=== PATIENT | female | born 1965 | race Caucasian/White ===

== ENCOUNTER 2016-05-27 18:13 | Emergency (ER) | payer OTHER ==
[2016-05-27 18:16] VITALS: BP 158/95; PULSE 88; TEMP 98.2; BMI 42.5
--- NOTE | 2016-05-27 18:41 | PDOC ---
History of Present Illness - General Chief Complaint: Cold Symptoms Stated Complaint: CHILLS Time Seen by Provider: 05/27/16 18:22 History Source: Patient Exam Limitations: No Limitations - History of Present Illness Initial Comments: 05/27/16 18:39 50 YR FEMALE c/o chills for one day and low back pain. Pt denies fever, no abd pain neg nvd. Pt denies urine or bowel dysfunction or complaints. Pt has dry cough. Pt has history of hypothyroid, kidney stones. 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 Pt has no chest pain or abd pain. 05/27/16 19:32 Timing/Duration: 24 hours Past History - Past Medical History Allergies/Adverse Reactions: Allergies Allergy/AdvReac Type Severity Reaction Status Date / Time No Known Drug Allergies Allergy Verified 05/27/16 18:16 Home Medications: Ambulatory Orders Cabergoline [Dostinex -] 0.5 mg PO WEEKLY 05/27/16 Cephalexin [Keflex] 500 mg PO BID #10 capsule 05/27/16 Metoprolol Tartrate 100 mg PO 05/27/16 Anemia: No Asthma: No Cancer: No Cardiac Disorders: No CVA: No COPD: No CHF: No Dementia: No Diabetes: No GI Disorders: No Disorders: No HTN: Yes Hypercholesterolemia: No Kidney Stones: Yes Liver Disease: No Suicide Attempt (Hx): No Seizures: No Thyroid Disease: No - Surgical History Abdominal Surgery: No Appendectomy: Yes Cardiac Surgery: No Cholecystectomy: No Lung Surgery: No Neurologic Surgery: No Orthopedic Surgery: No - Reproductive History (#): 0 - Immunization History Immunization Up to Date: Yes - Psycho/Social/Smoking Cessation Hx Anxiety: No Suicidal Ideation: No Smoking History: Never smoked Have you smoked in the past 12 months: No Information on smoking cessation initiated: No Hx Alcohol Use: No Drug/Substance Use Hx: No Substance Use Type: None Hx Substance Use Treatment: No Review of Systems - Review of Systems Able to Perform ROS?: Yes Is the patient limited Egyptian proficient: No Constitutional: Yes: Symptoms Reported, Chills HEENTM: No: Symptoms Reported Respiratory: Yes: Symptoms reported, See HPI, Cough Cardiac (ROS): No: Symptoms Reported ABD/GI: No: Symptoms Reported : Yes: Flank Pain Musculoskeletal: No: Symptoms Reported *Physical Exam - Vital Signs Last Vital Signs Temp Pulse Resp BP Pulse Ox 98.2 F 88 18 158/95 98 05/27/16 18:14 05/27/16 18:14 05/27/16 18:14 05/27/16 18:14 05/27/16 18:14 - Physical Exam General Appearance: Yes: Nourished, Appropriately Dressed HEENT: positive: EOMI, FOZIA, Normal ENT Inspection, TMs Normal, Pharynx Normal Neck: positive: Supple. negative: Tender Respiratory/Chest: positive: Lungs Clear, Normal Breath Sounds. negative: Chest Tender, Wheezing Cardiovascular: positive: Regular Rhythm, Regular Rate Gastrointestinal/Abdominal: positive: Normal Bowel Sounds, Soft Musculoskeletal: positive: Normal Inspection. negative: CVA Tenderness, CVA Tenderness (R) Extremity: positive: Normal Capillary Refill, Normal Inspection, Normal Range of Motion Integumentary: positive: Normal Color, Dry, Warm Neurologic: positive: Fully Oriented, Alert, Normal Mood/Affect, Normal Response , Motor Strength 5/5 Medical Decision Making - Medical Decision Making 05/27/16 18:41 cc: chills, flank pain low back will r/o UTI afebrile non toxic appearing 05/27/16 19:46 urine resulted 1+ blood (LMP one week ago) 05/27/16 19:46 pt states the pain has improved in her lower back since taking the motrin. I will dc home with po keflex to cover for possible early UTI strict follow up with the urologist , pt has her own. pt agrees with the plan. will give keflex now in ER pt understands to return if worse or any fever. temp is now 98.3 no chills. 05/27/16 19:52 *DC/Admit/Observation/Transfer Diagnosis at time of Disposition: Hematuria - Discharge Dispostion Disposition: HOME Condition at time of disposition: Good - Prescriptions Prescriptions: Cephalexin [Keflex] 500 mg PO BID #10 capsule - Referrals Referrals: Belkis Kaye [Primary Care Provider] - Adria Ray MD [Staff Physician] - - Patient Instructions Additional Instructions: drink pleanty of fluids to stay hydrated take the next dose of Keflex tomorrow morning follow with your urologist tomorrow or Tuesday return to ER for any worsening pain, fever, vomiting abd pain or other concerns
[2016-05-27 19:35] LABS: URINE APPEARANCE CLEAR; URINE BILIRUBIN NEGATIVE (NEGATIVE); URINE COLOR COLORLESS; URINE GLUCOSE (UA) NEGATIVE (NEGATIVE); URINE KETONE NEGATIVE (NEGATIVE); URINE LEUK ESTERASE NEGATIVE (NEGATIVE); URINE NITRITE NEGATIVE (NEGATIVE); URINE PROTEIN NEGATIVE (NEGATIVE); URINE UROBILINOGEN NEGATIVE E.U./dl (0.2-1.0)
[2016-05-27 19:39] LABS: URINE BLOOD 1+ (NEGATIVE)
[2016-05-27 19:40] LABS: URINE BACTERIA RARE /hpf (NONE SEEN); URINE RBC 1 /hpf (0-3); URINE WBC <1 /hpf (3-5)
[2016-05-27] MEDS ORDERED: CEPHALEXIN MONOHYDRATE 500 MG CAPSULE (UD) PO ONE (19:51)
[2016-05-27] MEDS ORDERED: CEPHALEXIN MONOHYDRATE 500 MG CAPSULE (UD) ONE (19:56)
== END 2016-05-27 20:00 | disposition home or self-care (01) ==
LOC: JERFT 18:13
DX: R31.9 Hematuria, unspecified (principal); I10 Essential (primary) hypertension; Z87.442 Personal history of urinary calculi
CPT/HCPCS: 81003; 81015; 87086; 99281-25

== ENCOUNTER 2016-06-25 19:53 | Emergency (ER) | payer OTHER ==
[2016-06-25 20:18] VITALS: BP 169/98; PULSE 79; TEMP 97.8; BMI 42.5
--- NOTE | 2016-06-25 20:43 | PDOC ---
History of Present Illness - General Chief Complaint: Vaginal Bleeding Stated Complaint: VAGINAL BLEEDING Time Seen by Provider: 06/25/16 20:10 History Source: Patient Exam Limitations: No Limitations - History of Present Illness Travel History: No Timing/Duration: reports: intermittent Past History - Past Medical History Allergies/Adverse Reactions: Allergies Allergy/AdvReac Type Severity Reaction Status Date / Time No Known Drug Allergies Allergy Verified 06/25/16 20:17 Home Medications: Ambulatory Orders Cabergoline [Dostinex -] 0.5 mg PO WEEKLY 05/27/16 Cephalexin [Keflex] 500 mg PO BID #10 capsule 05/27/16 Metoprolol Tartrate 100 mg PO 05/27/16 Anemia: No Asthma: No Cancer: No Cardiac Disorders: No CVA: No COPD: No CHF: No Dementia: No Diabetes: No GI Disorders: No Disorders: No HTN: Yes Hypercholesterolemia: No Kidney Stones: Yes Liver Disease: No Suicide Attempt (Hx): No Seizures: No Thyroid Disease: No - Surgical History Abdominal Surgery: No Appendectomy: Yes Cardiac Surgery: No Cholecystectomy: No Lung Surgery: No Neurologic Surgery: No Orthopedic Surgery: No - Reproductive History (#): 0 - Immunization History Immunization Up to Date: Yes - Psycho/Social/Smoking Cessation Hx Anxiety: No Suicidal Ideation: No Smoking History: Never smoked Have you smoked in the past 12 months: No Information on smoking cessation initiated: No Hx Alcohol Use: No Drug/Substance Use Hx: No Substance Use Type: None Hx Substance Use Treatment: No *Physical Exam - Vital Signs Last Vital Signs Temp Pulse Resp BP Pulse Ox 97.8 F 79 20 169/98 97 06/25/16 20:15 06/25/16 20:15 06/25/16 20:15 06/25/16 20:15 06/25/16 20:15 ED Treatment Course - LABORATORY CBC & Chemistry Diagram: 06/25/16 21:05 06/25/16 21:05 *DC/Admit/Observation/Transfer Diagnosis at time of Disposition: Uterine leiomyoma Qualifiers: Uterine leiomyoma location: submucous Qualified Code(s): D25.0 - Submucous leiomyoma of uterus - Discharge Dispostion Disposition: HOME Condition at time of disposition: Stable Admit: No - Referrals Referrals: Link Chung MD [Staff Physician] - - Patient Instructions Printed Discharge Instructions: Uterine Fibroids Additional Instructions: 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
--- NOTE | 2016-06-25 20:50 | PDOC ---
*Physical Exam - Vital Signs Last Vital Signs Temp Pulse Resp BP Pulse Ox 97.8 F 79 20 169/98 97 06/25/16 20:15 06/25/16 20:15 06/25/16 20:15 06/25/16 20:15 06/25/16 20:15 ED Treatment Course - LABORATORY CBC & Chemistry Diagram: 06/25/16 21:05 06/25/16 21:05 Medical Decision Making - Medical Decision Making 06/25/16 20:50 50 yo F presenting to the ER with a complaint of vaginal bleeding and lower abd cramping Awaiting UHCG Awaiting CBC 06/25/16 20:50 06/25/16 23:13 Uhcg neg Hgb appropriate U/S with fibroid will discharge to home Pt seen by Midlevel Provider under my direct supervision Ancillary studies reviewed I agree with plan as outlined by Midlevel Provider *DC/Admit/Observation/Transfer Diagnosis at time of Disposition: Fibroids - Discharge Dispostion Disposition: HOME Condition at time of disposition: Stable - Referrals Referrals: Link Chung MD [Staff Physician] - - Patient Instructions Printed Discharge Instructions: Uterine Fibroids Additional Instructions: 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
[2016-06-25 21:50] LABS: BASOPHIL 0.5 % (0-2.0); EOSINOPHIL 2.8 % (0-4.5); MCH 27.1 pg (25.7-33.7); MCHC 32.6 g/dl (32.0-36.0); MEAN CELL VOLUME 83.1 fl (80-96); MEAN PLT VOLUME 8.4 fl (7.5-11.1); NEUTROPHILS 63.8 % (42.8-82.8); PLATELET COUNT 311 K/MM3 (134-434); RDW 13.8 % (11.6-15.6); WHITE BLOOD COUNT 8.8 K/mm3 (4.0-10.0)
[2016-06-25 21:51] LABS: URINE APPEARANCE CLEAR; URINE BILIRUBIN NEGATIVE (NEGATIVE); URINE COLOR COLORLESS; URINE GLUCOSE (UA) NEGATIVE (NEGATIVE); URINE KETONE NEGATIVE (NEGATIVE); URINE LEUK ESTERASE NEGATIVE (NEGATIVE); URINE NITRITE NEGATIVE (NEGATIVE); URINE PROTEIN NEGATIVE (NEGATIVE); URINE UROBILINOGEN NEGATIVE E.U./dl (0.2-1.0)
[2016-06-25 22:00] LABS: URINE BLOOD 3+ (NEGATIVE)
[2016-06-25 22:02] LABS: URINE MUCUS RARE; URINE RBC 18 /hpf (0-3); URINE WBC <1 /hpf (3-5)
[2016-06-25 22:32] LABS: ALBUMIN 3.9 g/dl (3.4-5.0); ALK PHOS 77 U/L (45-117); ANION GAP 11 (8-16); BILIRUBIN,TOTAL 0.5 mg/dL (0.2-1.0); CALCIUM 8.7 mg/dL (8.5-10.1); CO2 26 mmol/L (21-32); CREATININE 0.7 mg/dL (0.55-1.02); GLUCOSE,RANDOM 86 mg/dL (74-106); SGOT/AST 16 U/L (15-37); SGPT/ALT 27 U/L (12-78); TOT PROT 7.6 g/dl (6.4-8.2)
== END 2016-06-25 23:50 | disposition home or self-care (01) ==
LOC: JER 19:53
DX: D25.0 Submucous leiomyoma of uterus (principal); I10 Essential (primary) hypertension; Z87.442 Personal history of urinary calculi
CPT/HCPCS: 36415; 76830-TC; 80053; 81003; 81015; 84703; 85025; 87086; 99283-25

== ENCOUNTER 2017-07-08 15:17 | Emergency (ER) | payer OTHER ==
--- NOTE | 2017-07-08 15:22 | PDOC ---
Rapid Medical Evaluation Time Seen by Provider: 07/08/17 15:20 Medical Evaluation: Allergies Allergy/AdvReac Type Severity Reaction Status Date / Time No Known Drug Allergies Allergy Verified 07/08/17 15:20 I have performed a brief in-person evaluation of this patient. The patient presents with a chief complaint of: pain to of left buttock into left thigh Pertinent physical exam findings: pain with palpation of left buttock I have ordered the following: urinalysis, hcg The patient will proceed to the ED for further evaluation. Discharge Disposition - Diagnosis Sciatic leg pain - Referrals - Patient Instructions - Post Discharge Activity
[2017-07-08 15:25] VITALS: BP 152/91; PULSE 74; TEMP 98.1; BMI 40.1
[2017-07-08 15:57] LABS: URINE APPEARANCE CLEAR; URINE BILIRUBIN NEGATIVE (<2.0 mg/dL); URINE COLOR STRAW; URINE GLUCOSE (UA) NEGATIVE (NEGATIVE); URINE KETONE NEGATIVE (NEGATIVE); URINE LEUK ESTERASE NEGATIVE (NEGATIVE); URINE NITRITE NEGATIVE (NEGATIVE); URINE PROTEIN NEGATIVE (NEGATIVE); URINE UROBILINOGEN NEGATIVE mg/dL (0.2-1.0)
[2017-07-08 15:59] LABS: HCG,QUALITATIVE URINE NEGATIVE
[2017-07-08 16:03] LABS: EPI CELLS RARE /HPF (FEW)
[2017-07-08] MEDS ORDERED: KETOROLAC TROMETHAMINE 60 MG/2 ML VIAL ONE (16:27)
[2017-07-08] MEDS ORDERED: KETOROLAC TROMETHAMINE 60 MG/2 ML VIAL IM ONE (16:29)
--- NOTE | 2017-07-08 16:29 | PDOC ---
History of Present Illness - General Chief Complaint: Back Pain Stated Complaint: BACK PAIN Time Seen by Provider: 07/08/17 15:20 History Source: Patient - History of Present Illness Occurred: reports: yesterday Severity: reports: moderate Pain Location: reports: back Past History - Past Medical History Allergies/Adverse Reactions: Allergies Allergy/AdvReac Type Severity Reaction Status Date / Time No Known Drug Allergies Allergy Verified 07/08/17 15:21 Home Medications: Ambulatory Orders Metoprolol Tartrate 100 mg PO DAILY 05/27/16 Hydrochlorothiazide 25 mg PO ASDIR 07/08/17 Levothyroxine [Synthroid -] 25 mcg PO DAILY 07/08/17 Lidocaine 5% Patch [Lidoderm Patch -] 1 patch TP DAILY #7 patch 07/08/17 Tramadol HCl 50 mg PO Q6H #15 tablet MDD 200mg 07/08/17 Anemia: No Asthma: No Cancer: No Cardiac Disorders: No CVA: No COPD: No CHF: No Dementia: No Diabetes: No GI Disorders: No Disorders: No HTN: Yes Hypercholesterolemia: No Kidney Stones: Yes Liver Disease: No Seizures: No Thyroid Disease: Yes (Hypo) - Surgical History Abdominal Surgery: No Appendectomy: Yes Cardiac Surgery: No Cholecystectomy: No Lung Surgery: No Neurologic Surgery: No Orthopedic Surgery: No - Reproductive History (#): 0 - Immunization History Immunization Up to Date: Yes - Suicide/Smoking/Psychosocial Hx Smoking History: Never smoked Have you smoked in the past 12 months: No Information on smoking cessation initiated: No Hx Alcohol Use: No Drug/Substance Use Hx: No Substance Use Type: None Hx Substance Use Treatment: No Review of Systems - Review of Systems Constitutional: No: Chills, Fever Respiratory: No: Shortness of Breath Cardiac (ROS): No: Chest Pain ABD/GI: No: Nausea, Vomiting, Abdominal cramping : No: Burning, Dysuria, Flank Pain, Hematuria Musculoskeletal: Yes: Back Pain. No: Muscle Weakness Neurological: Yes: Numbness. No: Tingling *Physical Exam - Vital Signs Last Vital Signs Temp Pulse Resp BP Pulse Ox 98.1 F 74 15 152/91 96 07/08/17 15:21 07/08/17 15:21 07/08/17 15:21 07/08/17 15:21 07/08/17 15:21 - Physical Exam General Appearance: Yes: Appropriately Dressed. No: Apparent Distress HEENT: positive: Normal Voice Neck: positive: Supple Respiratory/Chest: negative: Respiratory Distress Gastrointestinal/Abdominal: positive: Soft. negative: Tender, Pulsatile Mass Musculoskeletal: negative: CVA Tenderness, Vertebral Tenderness Extremity: positive: Normal Inspection Integumentary: positive: Dry, Warm Neurologic: positive: Fully Oriented, Alert, Normal Mood/Affect, Motor Strength 5/5, Sensory Deficit, Other (no SLR, able to bear weight) ED Treatment Course - ADDITIONAL ORDERS Additional order review: Laboratory Results 07/08/17 15:35 Urine Color Straw Urine Appearance Clear Urine pH 6.0 Ur Specific [place] 1.008 Urine Protein Negative Urine Glucose (UA) Negative Urine Ketones Negative Urine Blood 2+ H Urine Nitrite Negative Urine Bilirubin Negative Urine Urobilinogen Negative Ur Leukocyte Esterase Negative Urine WBC (Auto) 1 Urine RBC (Auto) 1 Ur Epithelial Cells Rare Urine HCG, Qual Negative Medical Decision Making - Medical Decision Making 07/08/17 16:30 51-year-old female, history of fibroids, renal stones, here with back pain. Patient states since yesterday, she's had left lower back pain that radiates to posterior aspect of left thigh with some numbness. Unable to describe pain, but states it is 8 out of 10 and worse with sitting and certain movements. No lower extremity weakness. No bowel or bladder incontinence or saddle anesthesia. No abd pain, CP or SOB. Denies any trauma. No history of similar pain. Taking Tylenol and Advil with no relief. Denies any dysuria, hematuria, nausea, vomiting, fever or chills. Patient adamant that this does not feel like her renal stones. See exam L lower back pain Possibly MSK Does not feel like prior renal colic and no sxs, n/v/f/c No suspicion for aortic pathology at this time Stable and in NAD w/ unremarkable exam UA w/ 2+ bld (of note menses finished yesterday per pt) -pain control and reassess in ED 07/08/17 17:03 Patient reports feeling better at this time and feels well enough to go home with pain meds. Patient to follow-up with her PMD *DC/Admit/Observation/Transfer Diagnosis at time of Disposition: Low back pain Qualifiers: Chronicity: acute Back pain laterality: left Sciatica presence: without sciatica Qualified Code(s): M54.5 - Low back pain - Discharge Dispostion Disposition: HOME Condition at time of disposition: Stable - Prescriptions Prescriptions: Lidocaine 5% Patch [Lidoderm Patch -] 1 patch TP DAILY #7 patch Tramadol HCl 50 mg PO Q6H #15 tablet MDD 200mg - Referrals Referrals: Belkis Kaye [Primary Care Provider] - - Patient Instructions Printed Discharge Instructions: Low Back Pain Additional Instructions: Take edications as prescribed and follow-up with your doctor in 1-2 weeks for further evaluation - Post Discharge Activity Forms/Work/School Notes: Back to Work
== END 2017-07-08 17:09 | disposition home or self-care (01) ==
LOC: JERFT 15:17
PROC: 3E0233Z Introduction of Anti-inflammatory into Muscle, Percutaneous Approach (ICD-10-PCS; principal; 2017-07-08)
DX: M54.42 Lumbago with sciatica, left side (principal)
CPT/HCPCS: 81003; 81015; 84703; 96372; 99281-25

== ENCOUNTER 2017-07-11 15:13 | Emergency (ER) | payer OTHER ==
--- NOTE | 2017-07-11 15:24 | PDOC ---
Rapid Medical Evaluation Time Seen by Provider: 07/11/17 15:24 Medical Evaluation: Allergies Allergy/AdvReac Type Severity Reaction Status Date / Time No Known Drug Allergies Allergy Verified 07/08/17 15:21 07/11/17 15:24 I have performed a brief in-person evaluation of this patient. The patient presents with a chief complaint of: left lower back pain with sciatica x4 days Pertinent physical exam findings: No muscle spams. No CVAT. I have ordered the following: xray The patient will proceed to the ED for further evaluation. Discharge Disposition - Diagnosis Low back pain - Referrals - Patient Instructions - Post Discharge Activity
[2017-07-11 15:36] VITALS: BP 143/64; PULSE 70; TEMP 98.4; BMI 43.6
--- NOTE | 2017-07-11 16:29 | PDOC ---
History of Present Illness - General Chief Complaint: Back Pain Stated Complaint: REVISIT, BACK PAIN Time Seen by Provider: 07/11/17 15:24 - History of Present Illness Initial Comments: 51-year-old female presents for reevaluation of lower back pain. She describes her pain as achy exacerbated with prolonged sitting relieved with rest with radiation down her lateral aspect of the left leg to the level of the thigh. She has no loss of bowel bladder function. Other associated symptoms 07/11/17 16:27 Past History - Past Medical History Allergies/Adverse Reactions: Allergies Allergy/AdvReac Type Severity Reaction Status Date / Time No Known Drug Allergies Allergy Verified 07/11/17 15:29 Home Medications: Ambulatory Orders Metoprolol Tartrate 100 mg PO DAILY 05/27/16 Hydrochlorothiazide 25 mg PO ASDIR 07/08/17 Levothyroxine [Synthroid -] 25 mcg PO DAILY 07/08/17 Lidocaine 5% Patch [Lidoderm Patch -] 1 patch TP DAILY #7 patch 07/08/17 Tramadol HCl 50 mg PO Q6H #15 tablet MDD 200mg 07/08/17 Cyclobenzaprine HCl [Flexeril 10 mg] 10 mg PO HS PRN #10 tablet 07/11/17 Methylprednisolone [Medrol Dose Harish] 4 mg PO ASDIR #21 tablet 07/11/17 Anemia: No Asthma: No Cancer: No Cardiac Disorders: No CVA: No COPD: No CHF: No Dementia: No Diabetes: No GI Disorders: No Disorders: No HTN: Yes Hypercholesterolemia: No Kidney Stones: Yes Liver Disease: No Seizures: No Thyroid Disease: Yes (Hypo) - Surgical History Abdominal Surgery: No Appendectomy: Yes Cardiac Surgery: No Cholecystectomy: No Lung Surgery: No Neurologic Surgery: No Orthopedic Surgery: No - Reproductive History (#): 0 - Immunization History Immunization Up to Date: Yes - Suicide/Smoking/Psychosocial Hx Smoking History: Never smoked Have you smoked in the past 12 months: No Information on smoking cessation initiated: No Hx Alcohol Use: No Drug/Substance Use Hx: No Substance Use Type: None Hx Substance Use Treatment: No Review of Systems - Review of Systems Musculoskeletal: Yes: Back Pain All Other Systems: Reviewed and Negative *Physical Exam - Vital Signs Last Vital Signs Temp Pulse Resp BP Pulse Ox 98.4 F 70 16 143/64 100 07/11/17 15:32 07/11/17 15:32 05/14/18 15:32 07/11/17 15:32 07/11/17 15:32 - Physical Exam Comments: GENERAL: [The patient is awake, alert, and fully oriented, in no acute distress. ] HEAD: [Normal with no signs of trauma.] EYES: [Pupils equal, round and reactive to light, extraocular movements intact, sclera anicteric, conjunctiva clear.] ENT: [Ears normal, nares patent, oropharynx clear without exudates. Moist mucous membranes.] NECK: [Normal range of motion, supple without lymphadenopathy, JVD, or masses.] LUNGS: [Breath sounds equal, clear to auscultation bilaterally. No wheezes, and no crackles.] HEART: [Regular rate and rhythm, normal S1 and S2 without murmur, rub or gallop. ] ABDOMEN: [Soft, nontender, normoactive bowel sounds. No guarding, no rebound. No masses.] EXTREMITIES: [Normal range of motion, no edema. No clubbing or cyanosis. No cords, erythema, or tenderness.] NEUROLOGICAL: [Cranial nerves II through XII grossly intact. Normal speech, normal gait.] PSYCH: [Normal mood, normal affect.] SKIN: [Warm, Dry, normal turgor, no rashes or lesions noted.] Lumbar spine skin color and temperature are normal. There is full nonpainful range of motion. 5 out of 5 strength in bilateral lower extremities. Patella and Achilles reflexes are 2+ and symmetric bilaterally. There is no clonus. Straight leg raise test is negative bilaterally. Thighs and calves are soft and nontender. There are no gross sensory motor deficits. Neurovascularly intact. 07/11/17 16:28 Medical Decision Making - Medical Decision Making Surgeries of the lumbar spine show straightening the lordosis. Mild to moderate degenerative changes. Severe decreased disc space at L5 and S1. No acute fracture 07/11/17 16:59 *DC/Admit/Observation/Transfer Diagnosis at time of Disposition: Low back pain, Lumbar back pain, Lumbar radicular pain - Discharge Dispostion Disposition: HOME Condition at time of disposition: Stable Decision to Admit order: No - Referrals Referrals: Belkis Kaye [Primary Care Provider] - Anuj Lipscomb MD [Staff Physician] - - Patient Instructions Printed Discharge Instructions: Lumbar Radiculopathy Additional Instructions: You have lumbar radiculopathy which is basically nerve root impingement coming from your lower back cannulate. I prescribed a steroid pack its best to start pack in the morning. The directions on the pack its a tapering dose. As well as a muscle relaxer. 1 pill right before bedtime. Follow-up with orthopedic surgery for further evaluation and treatment options. Return to the emergency room if symptoms increase or go unresolved prior to follow-up with orthopedic surgery. Any anti-inflammatories while on the Medrol Dosepak. No abnormal Trinalin Aleve or ibuprofen. - Post Discharge Activity
[2017-07-11 16:34] LABS: URINE APPEARANCE CLEAR; URINE BILIRUBIN NEGATIVE (<2.0 mg/dL); URINE COLOR STRAW; URINE GLUCOSE (UA) NEGATIVE (NEGATIVE); URINE KETONE NEGATIVE (NEGATIVE); URINE LEUK ESTERASE NEGATIVE (NEGATIVE); URINE NITRITE NEGATIVE (NEGATIVE); URINE PROTEIN NEGATIVE (NEGATIVE); URINE UROBILINOGEN NEGATIVE mg/dL (0.2-1.0)
== END 2017-07-11 17:17 | disposition home or self-care (01) ==
LOC: JERFT 15:13
DX: M54.16 Radiculopathy, lumbar region (principal); I10 Essential (primary) hypertension; E03.9 Hypothyroidism, unspecified; Z87.442 Personal history of urinary calculi
CPT/HCPCS: 72100-TC-FY; 81003; 84703; 99281-25

== ENCOUNTER 2018-03-25 10:01 | Emergency (ER) | payer OTHER ==
[2018-03-25 10:10] VITALS: BP 156/74; PULSE 83; TEMP 98.6; BMI 40.3
--- NOTE | 2018-03-25 11:13 | PDOC ---
History of Present Illness - General Chief Complaint: Cold Symptoms Stated Complaint: COLD SYMPTOMS Time Seen by Provider: 03/25/18 10:54 History Source: Patient Exam Limitations: No Limitations - History of Present Illness Initial Comments: 03/25/18 11:08 52 year old female with a history of htn and surgical history of appendectomy and kidney stone removal presents with chest congestion x 1 week. Patient states runny nose, chest congestion and productive coughing x 1 week. Producing clear mucus, took otc medication feeling better but feels as if she still has "chest congestion" . Denies shortness of breath, fever or chills. 03/25/18 11:11 Severity: reports: mild Possible Cause: Yes: no prior episodes Modifying Factors: improves with: coughing Associated Symptoms: reports: denies symptoms Aspirin Received prior to arrival: Yes: no aspirin today ASA Contraindications(Core Measure): No: Allergy Beta Brenda Contraindications(Core Measure): Yes: Not Prescribed Past History - Past Medical History Allergies/Adverse Reactions: Allergies Allergy/AdvReac Type Severity Reaction Status Date / Time No Known Drug Allergies Allergy Verified 03/25/18 10:10 Home Medications: Ambulatory Orders Hydrochlorothiazide 25 mg PO ASDIR 07/08/17 Levothyroxine [Synthroid -] 25 mcg PO DAILY 07/08/17 Methylprednisolone [Medrol Dose Harish] 4 mg PO ASDIR #21 tablet 07/11/17 Guaifenesin [Mucinex] 1,200 mg PO BID #10 tab.er.12h 03/25/18 Anemia: No Asthma: No Cancer: No Cardiac Disorders: No CVA: No COPD: No CHF: No Dementia: No Diabetes: No GI Disorders: No Disorders: No HTN: Yes Hypercholesterolemia: No Kidney Stones: Yes Liver Disease: No Seizures: No Thyroid Disease: Yes (Hypo) - Surgical History Abdominal Surgery: No Appendectomy: Yes Cardiac Surgery: No Cholecystectomy: No Lung Surgery: No Neurologic Surgery: No Orthopedic Surgery: No - Reproductive History (#): 0 - Immunization History Immunization Up to Date: Yes - Suicide/Smoking/Psychosocial Hx Smoking History: Never smoked Have you smoked in the past 12 months: No Hx Alcohol Use: No Drug/Substance Use Hx: No Substance Use Type: None Hx Substance Use Treatment: No Respiratory Specific PMHX - Complaint Specific PMHX Angina: No Bronchitis: No Pneumonia: No Pulmonary Embolus: No TB (Tuberculosis): No Review of Systems - Review of Systems Able to Perform ROS?: Yes Is the patient limited Czech proficient: No Constitutional: No: Chills, Fever HEENTM: No: Nose Pain, Nose Congestion, Throat Swelling, Mouth Pain Respiratory: Yes: Productive cough. No: Orthopnea, Shortness of Breath Cardiac (ROS): No: Lightheadedness, Palpitations ABD/GI: No: Nausea, Poor Appetite, Indigestion : No: Incontinence, Urgency Musculoskeletal: No: Muscle Weakness Integumentary: No: Bruising, Erythema, Flushing Psychiatric: No: Stressors *Physical Exam - Vital Signs Last Vital Signs Temp Pulse Resp BP Pulse Ox 98.6 F 83 16 156/74 97 03/25/18 10:07 03/25/18 10:07 03/25/18 10:07 03/25/18 10:07 03/25/18 10:07 - Physical Exam General Appearance: Yes: Nourished, Appropriately Dressed HEENT: positive: TMs Normal, Pharynx Normal Respiratory/Chest: positive: Lungs Clear, Normal Breath Sounds Cardiovascular: positive: Regular Rhythm, Regular Rate, S1, S2 Neurologic: 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: machine sprayer II-XII NML intact, Fully Oriented Moderate Sedation - Procedure Monitoring Vital Signs: Procedure Monitoring Vital Signs Temperature 98.6 F 03/25/18 10:07 Pulse Rate 83 03/25/18 10:07 Respiratory Rate 16 03/25/18 10:07 Blood Pressure 156/74 03/25/18 10:07 O2 Sat by Pulse Oximetry (%) 97 03/25/18 10:07 Medical Decision Making - Medical Decision Making 03/25/18 11:13 52 year old female with a history of htn and surgical history of appendectomy and kidney stone removal presents with chest congestion x 1 week Plan d/c with mucinex DM f/u with pmd *DC/Admit/Observation/Transfer Diagnosis at time of Disposition: URI (upper respiratory infection) Qualifiers: URI type: unspecified viral URI Qualified Code(s): J06.9 - Acute upper respiratory infection, unspecified - Discharge Dispostion Disposition: HOME Condition at time of disposition: Good Decision to Admit order: No - Prescriptions Prescriptions: Guaifenesin [Mucinex] 1,200 mg PO BID #10 tab.er.12h - Referrals Referrals: Belkis Kaye [Primary Care Provider] - - Patient Instructions Printed Discharge Instructions: How to Avoid a Cold or Flu Additional Instructions: Take medication as prescribed Drink plenty of fluids Follow up with primary physician as previously scheduled 04/10/2018 - Post Discharge Activity Forms/Work/School Notes: Back to Work
== END 2018-03-25 11:14 | disposition home or self-care (01) ==
LOC: JERFT 10:01
DX: J06.9 Acute upper respiratory infection, unspecified (principal); I10 Essential (primary) hypertension; E03.9 Hypothyroidism, unspecified
CPT/HCPCS: 99281-25

== ENCOUNTER 2018-09-11 01:00 | Emergency (ER) | payer OTHER ==
[2018-09-11 01:36] VITALS: BP 158/86; PULSE 74; TEMP 98.1; BMI 41.1
--- NOTE | 2018-09-11 02:01 | PDOC ---
History of Present Illness - General Chief Complaint: Pain, Acute Stated Complaint: LEFT SIDE PAIN Time Seen by Provider: 09/11/18 02:01 History Source: Patient Exam Limitations: No Limitations - History of Present Illness Initial Comments: Caden Carballo is a 53 yo obese F w a sig pmh of HTN, hypothyroidism and kidney stones who presents to the ER with left sided chest discomfort after she worked out at the gym and lifted weights in an unusual fashion. The patient states the left side of her ribs hurt whenever she takes a deep breath or whenever she turns her torso. She states the pain is also worse upon lying down. The patient believes her chest discomfort is entirely musculoskeletal in nature but came to the ER because she wanted to make sure there is nothing wrong with her heart. She states she knows her body and doesn't think this is anything more than a muscle strain. She denies any worsening with physical exertion, denies nausea or vomiting, denies radiation, and denies any diaphoresis. Patient also denies taking exogenous hormones, denies recent travel , denies personal or family history of thrombosis, and denies claf pain or leg swelling. PCP: Dr. Belkis Kaye PSH: appendectomy Allergies: NKA, NKDA Social Hx: Denies smoking, drinking, or other substance usage. Past History - Past Medical History Allergies/Adverse Reactions: Allergies Allergy/AdvReac Type Severity Reaction Status Date / Time No Known Drug Allergies Allergy Verified 09/11/18 01:36 Home Medications: Ambulatory Orders Hydrochlorothiazide 50 mg PO ASDIR 07/08/17 Levothyroxine [Synthroid -] 25 mcg PO DAILY 07/08/17 Ibuprofen [Motrin -] 400 mg PO PRN 09/11/18 Metoprolol Succinate 100 mg PO DAILY 09/11/18 Anemia: No Asthma: No Cancer: No Cardiac Disorders: No CVA: No COPD: No CHF: No Dementia: No Diabetes: No GI Disorders: No Disorders: No HTN: Yes Hypercholesterolemia: No Kidney Stones: Yes Liver Disease: No Seizures: No Thyroid Disease: Yes (Hypo) - Surgical History Abdominal Surgery: No Appendectomy: Yes Cardiac Surgery: No Cholecystectomy: No Lung Surgery: No Neurologic Surgery: No Orthopedic Surgery: No - Reproductive History (#): 0 - Immunization History Immunization Up to Date: Yes - Suicide/Smoking/Psychosocial Hx Smoking History: Unknown if ever smoked Have you smoked in the past 12 months: No Hx Alcohol Use: No Drug/Substance Use Hx: No Substance Use Type: None Hx Substance Use Treatment: No Review of Systems - Review of Systems Able to Perform ROS?: Yes Comments:: CONSTITUTIONAL: Absent: fever, no chills, no fatigue EYES: Absent: visual changes ENT: Absent: ear pain, no sore throat CARDIOVASCULAR: Present: Chest pain Absent: no palpitations RESPIRATORY: Absent: cough, no SOB GI: Absent: abdominal pain, no nausea, no vomiting, no constipation, no diarrhea GENITOURINARY: Absent: dysuria, no frequency, no hematuria MUSKULOSKELETAL: Present: Arthralgia Absent: back pain, no myalgia SKIN: Absent: rash NEURO: Absent: headache *Physical Exam - Vital Signs Last Vital Signs Temp Pulse Resp BP Pulse Ox 98.1 F 74 18 158/86 96 09/11/18 01:33 09/11/18 01:33 09/11/18 01:33 09/11/18 01:09/11/18 01:33 - Physical Exam Comments: GENERAL: Well developed, well nourished. Awake and alert. No acute distress. HEENT: Normocephalic, atraumatic. PERRLA, EOMI. No conjunctival pallor. Sclera are non- icteric. Moist mucous membranes. Oropharynx is clear. NECK: Supple. Full ROM. No JVD. No lymphadenopathy. CARDIOVASCULAR: Regular rate and rhythm. No murmurs, rubs, or gallops. Distal pulses are 2+ and symmetric. PULMONARY: No evidence of respiratory distress. Lungs clear to auscultation bilaterally. No wheezing, rales or rhonchi. ABDOMINAL: Soft. Non-tender. Non-distended. No rebound or guarding. No organomegaly. Normoactive bowel sounds. MUSCULOSKELETAL Normal range of motion at all joints. No bony deformities or tenderness. No CVA tenderness. EXTREMITIES: No cyanosis. No clubbing. No edema. No calf tenderness. SKIN: Warm and dry. Normal capillary refill. No rashes. No jaundice. NEUROLOGICAL: Alert, awake, appropriate. Cranial nerves 2-12 intact. No deficits to light touch in face, upper extremities and lower extremities. No motor deficits in the in face, upper extremities and lower extremities. Normal speech. Gait is normal without ataxia. PSYCHIATRIC: Cooperative. Good eye contact. Appropriate mood and affect. ED Treatment Course - LABORATORY CBC & Chemistry Diagram: 09/11/18 02:10 09/11/18 02:10 Medical Decision Making - Medical Decision Making Caden Carballo is a 53 yo obese F w a sig pmh of HTN, hypothyroidism and kidney stones who presents to the ER with left sided chest discomfort after she worked out at the gym and lifted weights in an unusual fashion. The patient states the left side of her ribs hurt whenever she takes a deep breath or whenever she turns her torso. She states the pain is also worse upon lying down. The patient believes her chest discomfort is entirely musculoskeletal in nature but came to the ER because she wanted to make sure there is nothing wrong with her heart. She states she knows her body and doesn't think this is anything more than a muscle strain. She denies any worsening with physical exertion, denies nausea or vomiting, denies radiation, and denies any diaphoresis. Patient also denies taking exogenous hormones, denies recent travel , denies personal or family history of thrombosis, and denies claf pain or leg swelling. Vital Signs Temp Pulse Resp BP Pulse Ox 98.1 F 74 18 158/86 96 09/11/18 01:33 09/11/18 01:33 09/11/18 01:33 09/11/18 01:33 09/11/18 01:33 MDM: Patient comes in with what sounds and appears to be MSK related chest discomfort after she worked out and seems to have strained a muscle. Very low suspicion for PE. Patient can be PERC'ed out except that she is 53. She has a wells score of 0. - Will rule out ACS with an EKG and troponin Plan: Labs, ekg, CXR, analgesia, IV hydration, re-assess. Labs: Normal other than a mildly elevated BUN - Hydrating patient Troponin: negative EKG: NS rate of 73, No St elevations or depressions, no abnormal TWI, MI - 164, QTc - 469 CXR: Unremarkable Re-assessment: Patient feels better after anti-inflammatories and requests to be discharged. Disposition: Home with PCP and cardio FU *DC/Admit/Observation/Transfer Diagnosis at time of Disposition: Chest pain Qualifiers: Chest pain type: chest pain on breathing Qualified Code(s): R07.1 - Chest pain on breathing - Discharge Dispostion Disposition: HOME Condition at time of disposition: Improved Decision to Admit order: No - Referrals Referrals: Belkis Kaye [Primary Care Provider] - Miah Mcclelland MD [Staff Physician] - - Patient Instructions Printed Discharge Instructions: DI for Atypical Chest Pain, DI for Chest Pain Additional Instructions: You came into the ER with chest pain. We looked at your blood and did an EKG and found no abnormalities. We believe your chest pain is musculoskeletal in nature. We are giving you the number of a managing partner [employer] [place] to call and schedule an appointment with to follow up with in the next 3 to 5 days. Come back to the ER immediately if your pain worsens, or you have any other new or worsening concerns. Thank you for coming to the [facility] ER. We hope you feel better soon! Print Language: ARMENIAN - Post Discharge Activity
[2018-09-11] MEDS ORDERED: SODIUM CHLORIDE 1,000 ML IV STA (02:07)
[2018-09-11] MEDS ORDERED: IBUPROFEN 400 MG TABLET (FP) PO ONE ×2 (02:09→02:17)
[2018-09-11 02:33] LABS: BASO % 0.6 % (0-2.0); EOS % 3.2 % (0-4.5); HEMATOCRIT 39.4 % (32.4-45.2); HEMOGLOBIN 13.3 GM/dL (10.7-15.3); LYMPH % 19.7 % (8-40); MCH 28.3 pg (25.7-33.7); MCHC 33.8 g/dl (32.0-36.0); MEAN CELL VOLUME 83.7 fl (80-96); MEAN PLT VOLUME 8.2 fl (7.5-11.1); MONO % 6.4 % (3.8-10.2); NEUT % 70.1 % (42.8-82.8); PLATELET COUNT 245 K/MM3 (134-434); RBC 4.71 M/mm3 (3.60-5.2); RDW 14.6 % (11.6-15.6); WHITE BLOOD COUNT 10.2 K/mm3 (4.0-10.0)
[2018-09-11 02:55] LABS: INR 0.97 (0.83-1.09); PROTHROMBIN TIME (PATIENT) 11.4 SEC (9.7-13.0)
--- NOTE | 2018-09-11 02:55 | PDOC ---
Attending Attestation - Resident Resident Name: Cesar Bhandari - ED Attending Attestation I have performed the following: I have examined & evaluated the patient, The case was reviewed & discussed with the resident, I agree w/resident's findings & plan - HPI HPI: 09/11/18 05:18 Pt comes with chest tightness after working out 2 days ago. Getting worse since yesterday. States that she exercised heavily for a great deal of time and that she was lifting weights and using stretch bands to do stregnthening of her upper body. Pt has no other complaints. She just wants to make sure that she is ok, because she has a friend who had CP and who within 3 days. She is pleasant; eating healthfully; lost weight recently and she has no exertional CP. She knows that her cholesterol runs high and she follows with Dr. Kaye; next appt is in 3 weeks. - Physicial Exam PE: 09/11/18 05:22 Normal exam - Medical Decision Making 09/11/18 05:22 labs and EKG normal; pt will be discharged home.
[2018-09-11 03:02] LABS: ALBUMIN 3.8 g/dl (3.4-5.0); BILIRUBIN,TOTAL 0.5 mg/dL (0.2-1); BLOOD UREA NITROGEN 18.7 mg/dL (7-18); CALCIUM 8.5 mg/dL (8.5-10.1); CREATININE 0.7 mg/dL (0.55-1.3); MAGNESIUM 1.9 mg/dL (1.8-2.4); POTASSIUM 3.8 mmol/L (3.5-5.1); TOT PROT 7.6 g/dl (6.4-8.2)
--- NOTE | 2018-09-11 10:01 | EKG ---
Test Reason : Blood Pressure : / mmHG Vent. Rate : 073 BPM Atrial Rate : 073 BPM P-R Int : 164 ms QRS Dur : 098 ms QT Int : 426 ms P-R-T Axes : 063 038 033 degrees QTc Int : 469 ms NORMAL SINUS RHYTHM NORMAL ECG WHEN COMPARED WITH ECG OF 26-DEC-2015 15:10, NO SIGNIFICANT CHANGE WAS FOUND Confirmed by CHARISMA YI MD ([id number]) on 09/11/2018 10:00:44 AM Referred By: Confirmed By:CHARISMA YI MD
== END 2018-09-11 05:59 | disposition home or self-care (01) ==
LOC: JER 01:00
PROC: 3E0337Z Introduction of Electrolytic and Water Balance Substance into Peripheral Vein, Percutaneous Approach (ICD-10-PCS; principal; 2018-09-11)
DX: R07.1 Chest pain on breathing (principal); I10 Essential (primary) hypertension; E03.9 Hypothyroidism, unspecified; Z87.442 Personal history of urinary calculi
CPT/HCPCS: 36415; 71046-TC-FY; 80053; 83735; 84484; 85025; 85610; 93005; 93010; 96360; 99282-25; J7030

== ENCOUNTER 2018-09-16 15:01 | Emergency (ER) | payer OTHER ==
[2018-09-16 15:06] VITALS: BP 162/79; PULSE 72; BMI 41.1
[2018-09-16] MEDS ORDERED: BACITRACIN 0.9 GM PACKET TP ONE (15:25)
[2018-09-16] MEDS ORDERED: DIPHTH,PERTUSS(ACELL),TET 0.5 ML DISP.SYRIN IM ONE ×2 (15:25→15:26)
--- NOTE | 2018-09-16 15:35 | PDOC ---
History of Present Illness - General Chief Complaint: Abrasion Stated Complaint: LT. ARM LAC Time Seen by Provider: 09/16/18 15:07 History Source: Patient Exam Limitations: No Limitations - History of Present Illness Initial Comments: 09/16/18 15:39 HISTORY OF PRESENT ILLNESS: 53-year-old woman presents emergency department for evaluation of multiple scratches sustained today from her cat. 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 Has Never Showed Any Signs of Rabies Is Currently in Her Care. Patient is unsure of her last tetanus shot. Patient is able to monitor the feline for signs of rabies infection. No recent travel or sick contacts. PAST MEDICAL HISTORY: Denies past medical history SURGICAL HISTORY: Denies ALLERGIES: No known drug allergies REVIEW OF SYSTEMS General/Constitutional: Denies fever or chills. Denies weakness, weight change. HEENT: Denies change in vision. Denies ear pain or discharge. Denies sore throat. Cardiovascular: Denies chest pain or shortness of breath. Respiratory: Denies cough, wheezing, or hemoptysis. Gastrointestinal: Denies nausea, vomiting, diarrhea or constipation. Denies rectal bleeding. Genitourinary: Denies dysuria, frequency, or change in urination. Musculoskeletal: Denies joint or muscle swelling or pain. Denies neck or back pain. Skin and breasts: see HPI Neurologic: Denies headache, vertigo, loss of consciousness, or loss of sensation. Psychiatric: Denies depression or anxiety. Endocrine: Denies increased thirst. Denies abnormal weight change. Hematologic/Lymphatic: Denies anemia, easy bleeding, or history of blood clots. Allergic/Immunologic: Denies hives or skin allergy. Denies latex allergy. PHYSICAL EXAM General Appearance: Well-appearing, appropriately dressed. No apparent distress , no intoxication. Respiratory/Chest: Lungs CTAB. No shortness of breath, chest tenderness, respiratory distress, accessory muscle use. No crackles, rales, rhonchi, stridor , wheezing, dullness Cardiovascular: RRR. S1, S2. No JVD, murmur, bradycardia, tachycardia. Vascular Pulses: Dorsalis-Pedis (R): 2+, Dorsalis-Pedis (L): 2+ Musculoskeletal/Extremities: Normal inspection. FROM of all extremities, normal capillary refill. Pelvis Stable. No CVA tenderness. No tenderness to extremities, pedal edema, swelling, erythema or deformity. Integumentary: Multiple superficial scratches present to bilateral forearms and dorsum of bilateral hands. No discharge, drainage or signs of infection are present. Past History - Past Medical History Allergies/Adverse Reactions: Allergies Allergy/AdvReac Type Severity Reaction Status Date / Time No Known Drug Allergies Allergy Verified 09/16/18 15:06 Home Medications: Ambulatory Orders Hydrochlorothiazide 50 mg PO ASDIR 07/08/17 Levothyroxine [Synthroid -] 25 mcg PO DAILY 07/08/17 Metoprolol Succinate 100 mg PO DAILY 09/11/18 Amox-Tr/K Cl [Augmentin - 875Mg Tablet] 1 tab PO BID #20 tablet 09/16/18 Anemia: No Asthma: No Cancer: No Cardiac Disorders: No CVA: No COPD: No CHF: No Dementia: No Diabetes: No GI Disorders: No Disorders: No HTN: Yes Hypercholesterolemia: No Kidney Stones: Yes Liver Disease: No Seizures: No Thyroid Disease: Yes (Hypo) - Surgical History Abdominal Surgery: No Appendectomy: Yes Cardiac Surgery: No Cholecystectomy: No Lung Surgery: No Neurologic Surgery: No Orthopedic Surgery: No - Reproductive History (#): 0 - Immunization History Immunization Up to Date: No - Suicide/Smoking/Psychosocial Hx Smoking History: Never smoked Have you smoked in the past 12 months: No Hx Alcohol Use: No Drug/Substance Use Hx: No Substance Use Type: None Hx Substance Use Treatment: No *Physical Exam - Vital Signs Last Vital Signs Temp Pulse Resp BP Pulse Ox 72 18 162/79 97 09/16/18 15:03 09/16/18 15:03 09/16/18 15:03 09/16/18 15:03 Medical Decision Making - Medical Decision Making 09/16/18 15:37 A/P: 53-year-old woman with multiple cat scratches to bilateral forearms sustained one hour prior to arrival This is patient's cat which she has on for 5 years. He Has never shown signs of rabies. Boostrix Bacitracin to wounds Discharge home with prescription for Augmentin to be taken for 10 days twice a day. I discussed the physical exam findings, ancillary test results and final diagnoses with the patient. I answered all of the patient's questions. The patient was satisfied with the care received and felt comfortable with the discharge plan and treatment plan. The patient will call their primary care physician within 24 hours to arrange follow-up and will return to the Emergency Department with any new, persistent or worsening symptoms. *DC/Admit/Observation/Transfer Diagnosis at time of Disposition: Cat scratch of forearm Qualifiers: Encounter type: initial encounter Laterality: unspecified laterality Qualified Code(s): S50.819A - Abrasion of unspecified forearm, initial encounter; W55.03XA - Scratched by cat, initial encounter - Discharge Dispostion Disposition: HOME Condition at time of disposition: Fair Decision to Admit order: No - Prescriptions Prescriptions: Amox-Tr/K Cl [Augmentin - 875Mg Tablet] 1 tab PO BID #20 tablet - Referrals Referrals: Belkis Kaye [Primary Care Provider] - - Patient Instructions Additional Instructions: Clean wounds with warm water and antibacterial soap such as Dial twice a day. Dry thoroughly. Apply bacitracin to wounds after clean and thoroughly drying. Take Augmentin twice a day as directed. Return to emergency department for any redness, swelling, red streaks extending from the wounds [place] shoulders for any new or worsening symptoms. Thank you very much for choosing us to provide your emergent health care needs. - Post Discharge Activity
== END 2018-09-16 15:34 | disposition home or self-care (01) ==
LOC: JERFT 15:01
PROC: 3E0234Z Introduction of Serum, Toxoid and Vaccine into Muscle, Percutaneous Approach (ICD-10-PCS; principal; 2018-09-16)
DX: S50.819A Abrasion of unspecified forearm, initial encounter (principal); W55.03XA Scratched by cat, initial encounter; Y93.89 Activity, other specified; Y92.89 Other specified places as the place of occurrence of the external cause; I10 Essential (primary) hypertension; Z87.442 Personal history of urinary calculi
CPT/HCPCS: 90471; 90715; 99281-25